=== PATIENT | female | born 1960 | race Caucasian/White ===

== ENCOUNTER → 2016-09-26 | Outpatient (CLI) | payer BC ==
[2016-09-26 13:19] LABS: HEMATOCRIT 39.7 % (37-47); MEAN CELL VOLUME 82.2 fL (80-100); MEAN CORPUSCULAR HEMOGLOBIN 27.7 pg (25-34); MEAN CORPUSCULAR HGB CONC 33.8 g/dl (32-36); MEAN PLATELET VOLUME 10.9 fL (7.4-10.4); PLATELET COUNT 240 K/uL (130-400); RED BLOOD COUNT 4.83 M/uL (4.2-5.4); WHITE BLOOD COUNT 4.68 K/uL (4.8-10.8)
[2016-09-26 13:48] LABS: BASO % 0.6 %; BASO ABS # 0.03 K/uL (0-0.2); COMPLETE YES; EOS % 1.1 %; IG% 0.4 %; LYMPH % 52.4 %; LYMPH ABS # 2.45 K/uL (1.2-3.4); MONO % 7.9 %; NEUT % 37.6 %
[2016-09-26 13:51] LABS: ESTIMATED AVERAGE GLUCOSE 128 mg/dl; HA1C FLAG Normal (Normal)
[2016-09-26 14:26] LABS: AST/SGOT 26 U/L (15-37); BLOOD UREA NITROGEN 10 mg/dl (7-18); CALCIUM 9.5 mg/dl (8.5-10.1); CARBON DIOXIDE 23 mmol/L (21-32); CHLORIDE 108 mmol/L (98-107); CHOLESTEROL 228 mg/dl (0-200); CREATININE 0.77 mg/dl (0.60-1.20); GLUCOSE 103 mg/dl (70-99); HDL CHOLESTEROL 57 mg/dl; LDL CHOLESTEROL CALCULATED 136 mg/dl; PHOSPHORUS 3.1 mg/dl (2.5-4.9); POTASSIUM 4.1 mmol/L (3.5-5.1); SODIUM 141 mmol/L (136-145); TRIGLYCERIDES 174 mg/dl (0-150); VERY LOW DENSITY LIPOPROT CALC 35 mg/dl
[2016-09-26 14:38] LABS: ALT/SGPT 60 U/L (12-78)
== END | disposition home or self-care (01) ==
LOC: C.LABMFLN 09:08
PROVIDERS: ATTEND Family Medicine
DX: E78.5 Hyperlipidemia, unspecified (principal); D51.9 Vitamin B12 deficiency anemia, unspecified; Z13.1 Encounter for screening for diabetes mellitus

== ENCOUNTER → 2017-09-29 | Outpatient (CLI) | payer BC | END | disposition home or self-care (01) | LOC: C.LABMFLN 08:37 | PROVIDERS: ATTEND Family Medicine | DX: Z13.1 Encounter for screening for diabetes mellitus (principal); Z13.220 Encounter for screening for lipoid disorders ==

== ENCOUNTER → 2018-04-14 | Outpatient (CLI) | payer BC ==
[2018-04-14 17:38] LABS: BASO % 0.6 %; BASO ABS # 0.05 K/uL (0-0.2); EOS % 0.6 %; EOS ABS # 0.05 K/uL (0-0.5); HEMATOCRIT 39.7 % (37-47); HEMOGLOBIN 13.3 g/dL (12.0-16.0); IG# 0.02 K/uL (0.00-0.02); LYMPH % 43.3 %; LYMPH ABS # 3.38 K/uL (1.2-3.4); MEAN CELL VOLUME 84.6 fL (80-100); MEAN CORPUSCULAR HEMOGLOBIN 28.4 pg (25-34); MEAN CORPUSCULAR HGB CONC 33.5 g/dl (32-36); MEAN PLATELET VOLUME 11.3 fL (7.4-10.4); MONO ABS # 0.78 K/uL (0.11-0.59); NEUT % 45.2 %; NEUT ABS # 3.52 K/uL (1.4-6.5); PLATELET COUNT 245 K/uL (130-400); RED CELL DISTRIBUTION WIDTH CV 13.3 % (11.5-14.5); RED CELL DISTRIBUTION WIDTH SD 40.8 fL (36.4-46.3)
[2018-04-14 18:08] LABS: ALBUMIN 3.8 gm/dl (3.4-5.0); ALKALINE PHOSPHATASE 51 U/L (45-117); ALT/SGPT 56 U/L (12-78); AST/SGOT 30 U/L (15-37); BLOOD UREA NITROGEN 12 mg/dl (7-18); CARBON DIOXIDE 25 mmol/L (21-32); CREATININE 0.81 mg/dl (0.60-1.20); GLUCOSE 100 mg/dl (70-99); SODIUM 136 mmol/L (136-145); TOTAL PROTEIN 8.1 gm/dl (6.4-8.2)
== END | disposition home or self-care (01) ==
LOC: C.LABMFLN 15:59
PROVIDERS: ATTEND Family Medicine
DX: R10.12 Left upper quadrant pain (principal)

== ENCOUNTER 2020-05-17 19:16 | Observation (INO) ==
--- NOTE | 2020-05-17 19:47 | Emergency Department Note ---
History of Present Illness General Chief complaint: Abdominal Pain Stated complaint: ABD PAIN LEFT SIDE Time Seen by Provider: 05/17/20 19:28 Source: patient Mode of arrival: ambulatory Limitations: no limitations History of Present Illness Provider complaint: Right upper quadrant abdominal pain Onset (ago): week(s) 2 Location: abdomen Radiation: abdomen and flank Severity: moderate and similar to prior episodes Pain Consistency: + intermittent Maximum Pain Intensity: 6 Current Pain Intensity: 6 Quality: + sharp Relieved By: + none Exacerbated By: + none Associated symptoms: + loss of appetite; no fever/chills and no shortness of breath Treatments prior to arrival: none This is a 59-year-old female who presents to the emergency department due to recurrent right upper quadrant pain. Patient states this is the third episode she has had of this in the last 3 weeks. Patient had been to see her family doctor earlier in the week and underwent an outpatient right upper quadrant ultrasound which showed stones and sludge in her gallbladder. Patient states she was referred to Dr. Medrano of general surgery, but is unable to see him until Thursday. Patient states she ate grilled chicken for lunch around 1 PM. She states around 4 PM the symptoms started again and seemed much worse. She called the family doctor's office and was told to come to the emergency room. Patient denies any change in bowel or bladder function. Denies fevers or chills, denies nausea or vomiting. Patient states she did have nausea and vomiting with the prior episodes. Patient states her mother also needed her gallbladder taken out. No recent change in diet. No known exposure to coronavirus. Pt seen during a time of high acuity and national emergency pandemic while wearing PPE. Home Medications Home Medications Medication Instructions Recorded Confirmed Type cyanocobalamin (vitamin B-12) 1,000 mcg PO DAILY #30 cap 09/26/19 05/17/20 Rx 1,000 mcg capsule multivitamin 1 tab PO DAILY #30 tab 09/26/19 05/17/20 Rx loratadine-pseudoephedrine ER 10 1 tab PO DAILY PRN #90 tab 04/12/20 05/17/20 Rx mg-240 mg tablet,extended [id number] ciprofloxacin HCl 500 mg PO BID #10 tab 05/19/20 Rx hydrocodone-acetaminophen [[place]] 1 - 2 tab PO .q4-6h PRN #15 tab 09/19/20 Rx metronidazole 500 mg PO TID #15 tab 05/19/20 Rx Allergies Allergy/AdvReac Type Severity Reaction Status Date / Time No Known Allergies Allergy Verified 05/17/20 20:27 Past Med/Surg History Medical History Endometriosis Hyperlipidemia Liver lesion Obesity (BMI 30-39.9) Prediabetes RUQ abdominal pain Symptomatic cholelithiasis Vitamin B12 deficiency anemia, unspecified Surgical History History of carpal tunnel release History of colonoscopy History of hysterectomy RAY, BSO History of oral surgery Family History Aunt Breast cancer Father Heart disease Hypertension Hypercholesterolemia Stroke Mother Hypercholesterolemia Social History Smoking Status: Never smoker Hx Alcohol Use: No Hx Substance Use: No Preferred Language: [place] Communication Ability: Effective Account [employer] Required: No Beliefs That Will Affect Care: None Current Living Situation: Spouse Feels Safe at Home: Yes Review of Systems See HPI for pertinent positives & negatives. and A total of 10 systems reviewed and were otherwise negative Physical Exam Vital Signs Vital Signs - 24 hr 05/17/20 19:23 05/17/20 20:58 05/17/20 22:50 Temperature Source Oral Pulse Rate 108 H Pulse Rate [Apical] 90 85 Pulse Strength Normal Respiratory Rate 18 18 16 Respiratory Effort / Characteristics Non-Labored Spontaneous Respiratory Depth Normal Respiratory Pattern Regular Blood Pressure 170/84 H Blood Pressure [Left Arm] 167/93 H 160/74 H Blood Pressure Mean 112 Blood Pressure Mean [Left Arm] 117 102 Blood Pressure Position Sitting Pulse Oximetry 98 96 97 Oxygen Delivery Method Room Air Room Air Room Air Sepsis Recent Fever Within 48 Hours No Sepsis New/Unexplained Change in Mental Status No Sepsis Action Taken by Nursing No Action Required GENERAL: alert, well appearing, well nourished, no distress, non-toxic EYE EXAM: normal conjunctiva, PERRL and EOM's grossly intact OROPHARYNX: no exudate, no erythema, lips, buccal mucosa, and tongue normal and mucous membranes are moist NECK: supple, no nuchal rigidity, no adenopathy, non-tender LUNGS: Clear to auscultation. Normal chest wall mechanics, no w/r/r HEART: no murmurs, S1 normal and S2 normal ABDOMEN: abdomen soft, RUQ tenderness with palpation, normo-active bowel sounds, no masses, no rebound or guarding. BACK: Back is symmetrical on inspection and there is no deformity, no midline tenderness, no CVA tenderness. SKIN: no rashes and no bruising UPPER EXTREMITIES: upper extremities are grossly normal. FROM, nml pulses b/l. LOWER EXTREMITIES: No pitting edema. FROM, nml pulses b/l. NEURO EXAM: Normal sensorium, cranial nerves II-XII grossly intact, normal speech, no gross weakness of arms, no gross weakness of legs. Gross sensation intact. Course Course 2239: Discussed with Dr. Bellamy. Feels pt should have additional medicine evaluation including MRCP and they will see the patient in consult. 2251: Pt updated on results. 2304: Case discussed with Dr. Donovan. Administered Medications Discontinued Medications Bupivacaine HCl (Bupivacaine 0.5 % 5 Mg/1 Ml Mpf 30ml Vial) Confirm Administered Dose 30 ml .ROUTE .STK-MED ONE Stop: 05/18/20 17:41 Last Admin: 05/18/20 18:55 Dose: 12 ml Documented by: [id number] Epinephrine HCl (Epinephrine Inj 1 Mg/Ml Amp) Confirm Administered Dose 1 mg .ROUTE .STK-MED ONE Stop: 05/18/20 17:41 Last Admin: 05/18/20 18:54 Dose: 1 mg Documented by: [id number] Ceftriaxone Sodium 2,000 mg/ (Dextrose) 70 mls @ 100 mls/hr IV Q24H ALTA; Protocol Stop: 05/28/20 01:59 Last Infusion: 05/18/20 02:30 Dose: 0 mls/hr Documented by: [id number] Admin: 05/18/20 01:44 Dose: 100 mls/hr Documented by: [id number] Potassium Chloride/Sodium Chloride (Normal Saline W/20 Meq Kcl) 20 meq in 1,000 mls @ 100 mls/hr IV .Q10H ALTA Stop: 06/17/20 01:29 Last Infusion: 05/18/20 17:00 Dose: 0 mls/hr Documented by: [id number] Admin: 05/18/20 11:31 Dose: 100 mls/hr Documented by: [id number] Infusion: 05/18/20 11:31 Dose: 100 mls/hr Documented by: [id number] Admin: 05/18/20 01:44 Dose: 100 mls/hr Documented by: [id number] Famotidine 20 mg/ Syringe 5 mls @ 2.5 mls/min IV Q12H ALTA Stop: 06/17/20 08:59 Last Admin: 05/19/20 08:51 Dose: 2.5 mls/min Documented by: [id number] Admin: 05/18/20 21:46 Dose: 2.5 mls/min Documented by: [id number] Admin: 05/18/20 09:00 Dose: 2.5 mls/min Documented by: [id number] Cefepime HCl 1,000 mg/ Syringe 11.3 mls @ 5.5 mls/min IV Q12H ALTA Stop: 05/28/20 07:59 Last Admin: 05/18/20 09:00 Dose: 5.5 mls/min Documented by: [id number] Metronidazole (Flagyl) 500 mg in 100 mls @ 100 mls/hr IV Q8H ALTA Stop: 05/28/20 07:59 Last Infusion: 05/19/20 10:15 Dose: 0 mls/hr Documented by: [id number] Admin: 05/19/20 08:51 Dose: 100 mls/hr Documented by: [id number] Infusion: 05/19/20 00:30 Dose: 0 mls/hr Documented by: [id number] Admin: 05/18/20 23:27 Dose: 100 mls/hr Documented by: [id number] Infusion: 05/18/20 17:39 Dose: 0 mls/hr Documented by: [id number] Admin: 05/18/20 16:39 Dose: 100 mls/hr Documented by: [id number] Infusion: 05/18/20 10:00 Dose: 0 mls/hr Documented by: [id number] Admin: 05/18/20 09:00 Dose: 100 mls/hr Documented by: [id number] Cefepime HCl 2,000 mg/ Syringe 20 mls @ 5 mls/min IV Q8H ALTA Stop: 05/28/20 16:59 Last Admin: 05/19/20 08:51 Dose: 5 mls/min Documented by: [id number] Admin: 05/19/20 02:12 Dose: 5 mls/min Documented by: [id number] Admin: 05/18/20 16:47 Dose: 5 mls/min Documented by: [id number] Acetaminophen (Ofirmev) 1,000 mg in 100 mls @ 400 mls/hr IV Q8H ALTA Stop: 05/21/20 20:10 Last Infusion: 05/19/20 06:15 Dose: 0 mls/hr Documented by: [id number] Admin: 05/19/20 05:55 Dose: 400 mls/hr Documented by: [id number] Infusion: 05/18/20 22:05 Dose: 0 mls/hr Documented by: [id number] Admin: 05/18/20 21:45 Dose: 400 mls/hr Documented by: [id number] Sodium Chloride (Nss 1000ml) 1,000 mls @ 75 mls/hr IV .[id number] ALTA Stop: 06/17/20 20:10 Last Admin: 05/19/20 11:44 Dose: Not Given Documented by: [id number] Infusion: 05/19/20 06:15 Dose: 75 mls/hr Documented by: [id number] Infusion: 05/19/20 05:55 Dose: 0 mls/hr Documented by: [id number] Infusion: 05/19/20 05:45 Dose: 75 mls/hr Documented by: [id number] Infusion: 05/19/20 00:30 Dose: 75 mls/hr Documented by: [id number] Infusion: 05/18/20 23:27 Dose: 0 mls/hr Documented by: [id number] Admin: 05/18/20 22:05 Dose: 75 mls/hr Documented by: [id number] Oxycodone HCl (Oxycodone Hcl Ir 5 Mg Tab (Immediate Release)) 5 mg PO Q6H ALTA Stop: 06/01/20 21:59 Last Admin: 05/19/20 09:26 Dose: 5 mg Documented by: [id number] Admin: 05/19/20 04:21 Dose: 5 mg Documented by: [id number] Admin: 05/18/20 22:05 Dose: 5 mg Documented by: [id number] Medical Decision Making Differential Diagnosis Differential diagnoses includes but is not limited to gastritis, peptic ulcer disease, GERD, gallbladder disease, pancreatitis, small bowel obstruction, acute coronary syndrome, pericarditis, ischemic bowel, irritable bowel disease, irritable bowel syndrome, appendicitis, diverticulitis, malignancy, hernia, urinary tract infection, torsion, [/ectopic (if female)], perforation, trauma, infectious. Medical Records Attestation: I reviewed the patient's medical records. Home Medications Current Medication List: was personally reviewed by me Laboratory Data Attestation: I reviewed the patient's lab results. Result diagrams: 05/19/20 05:44 05/19/20 05:44 Lab Results 05/17/20 05/17/20 05/17/20 Range/Units 19:46 19:46 19:46 WBC 7.50 (4.8-10.8) K/uL RBC 4.90 (4.2-5.4) M/uL Hgb 14.0 (12.0-16.0) g/dL Hct 40.6 (37-47) % MCV 82.9 (80-100) fL MCH 28.6 (25-34) pg MCHC 34.5 (32-36) g/dL RDW Std Deviation 38.9 (36.4-46.3) fL RDW Coeff of Aayush 12.9 (11.5-14.5) % Plt Count 260 (130-400) K/uL MPV 10.5 H (7.4-10.4) fL Immature Gran % (Auto) 0.3 % Neut % (Auto) 51.6 % Lymph % (Auto) 39.1 % Emery % (Auto) 8.3 % Eos % (Auto) 0.3 % Baso % (Auto) 0.4 % Neut # (Auto) 3.88 (1.4-6.5) K/uL Lymph # (Auto) 2.93 (1.2-3.4) K/uL Emery # (Auto) 0.62 H (0.11-0.59) K/uL Eos # (Auto) 0.02 (0-0.5) K/uL Baso # (Auto) 0.03 (0-0.2) K/uL Immature Gran # (Auto) 0.02 (0.00-0.02) K/uL PT 11.2 (9.0-12.0) Seconds INR 1.1 (0.9-1.1) Sodium 139 (136-145) mmol/L Potassium 3.7 (3.5-5.1) mmol/L Chloride 107 (98-107) mmol/L Carbon Dioxide 23 (21-32) mmol/L Anion Gap 9.0 (3-11) BUN 15 (7-18) mg/dl Creatinine 0.81 (0.6-1.2) mg/dl Est Cr Clr Drug Dosing Not Reportable Est GFR ( Amer) 92.1 Est GFR (Non-Af Amer) 79.5 BUN/Creatinine Ratio 19.0 (10-20) Glucose 103 H (70-99) mg/dl Calcium 9.3 (8.5-10.1) mg/dl Total Bilirubin 1.5 H (0.2-1) mg/dl AST 154 H (15-37) U/L ALT 118 H (12-78) U/L Alkaline Phosphatase 64 (45-117) U/L Troponin I < 0.015 (0-0.045) ng/ml Total Protein 8.3 H (6.4-8.2) gm/dl Albumin 4.3 (3.4-5.0) gm/dl Globulin 4.0 (2.5-4.0) gm/dl Albumin/Globulin Ratio 1.1 (0.9-2) Lipase 115 (73-393) U/L Urine Color Urine Appearance (Clear) Urine pH (4.5-7.5) Ur Specific [place] (1.000-1.030) Urine Protein (Negative) Urine Glucose (UA) (Negative) Urine Ketones (Negative) Urine Blood (Negative) Urine Nitrite (Negative) Urine Bilirubin (Negative) Urine Urobilinogen (Negative) Ur Leukocyte Esterase (Negative) Urine WBC (Auto) (0-5) /hpf Urine RBC (Auto) (0-4) /hpf U Hyaline Cast (Auto) (0-5) /lpf U Epithel Cells (Auto) (0-5) /lpf Urine Bacteria (Auto) (Negative) 05/17/20 Range/Units 19:50 WBC (4.8-10.8) K/uL RBC (4.2-5.4) M/uL Hgb (12.0-16.0) g/dL Hct (37-47) % MCV (80-100) fL MCH (25-34) pg MCHC (32-36) g/dL RDW Std Deviation (36.4-46.3) fL RDW Coeff of Aayush (11.5-14.5) % Plt Count (130-400) K/uL MPV (7.4-10.4) fL Immature Gran % (Auto) % Neut % (Auto) % Lymph % (Auto) % Emery % (Auto) % Eos % (Auto) % Baso % (Auto) % Neut # (Auto) (1.4-6.5) K/uL Lymph # (Auto) (1.2-3.4) K/uL Emery # (Auto) (0.11-0.59) K/uL Eos # (Auto) (0-0.5) K/uL Baso # (Auto) (0-0.2) K/uL Immature Gran # (Auto) (0.00-0.02) K/uL PT (9.0-12.0) Seconds INR (0.9-1.1) Sodium (136-145) mmol/L Potassium (3.5-5.1) mmol/L Chloride (98-107) mmol/L Carbon Dioxide (21-32) mmol/L Anion Gap (3-11) BUN (7-18) mg/dl Creatinine (0.6-1.2) mg/dl Est Cr Clr Drug Dosing Est GFR ( Amer) Est GFR (Non-Af Amer) BUN/Creatinine Ratio (10-20) Glucose (70-99) mg/dl Calcium (8.5-10.1) mg/dl Total Bilirubin (0.2-1) mg/dl AST (15-37) U/L ALT (12-78) U/L Alkaline Phosphatase (45-117) U/L Troponin I (0-0.045) ng/ml Total Protein (6.4-8.2) gm/dl Albumin (3.4-5.0) gm/dl Globulin (2.5-4.0) gm/dl Albumin/Globulin Ratio (0.9-2) Lipase (73-393) U/L Urine Color Yellow Urine Appearance Clear (Clear) Urine pH 5.5 (4.5-7.5) Ur Specific [place] 1.006 (1.000-1.030) Urine Protein Negative (Negative) Urine Glucose (UA) Negative (Negative) Urine Ketones Trace H (Negative) Urine Blood 1+ H (Negative) Urine Nitrite Negative (Negative) Urine Bilirubin Negative (Negative) Urine Urobilinogen Negative (Negative) Ur Leukocyte Esterase 1+ H (Negative) Urine WBC (Auto) 1-5 (0-5) /hpf Urine RBC (Auto) 0-4 (0-4) /hpf U Hyaline Cast (Auto) 0 (0-5) /lpf U Epithel Cells (Auto) 10-20 H (0-5) /lpf Urine Bacteria (Auto) Negative (Negative) Imaging Data Radiologist's Impression: Ultrasound gallbladder: Pancreas is predominantly obscured. Echogenic liver suggesting fatty infiltration or hepatocellular disease. 1.8 x 1.3 x 2.0 cm lesion in the liver. Cholelithiasis and gallbladder sludge. Wall is upper limits of normal at 3 mm. Negative sonographic Kwon sign. No biliary ductal dilatation. Radiologist: Librado Gilmore MD Blood Pressure Blood Pressure Findings: Elevated blood pressure Blood Pressure Disposition: further management by hospitalist MDM Narrative Pt here with recurrent abdominal pain that she has seen her PCP for and referred to gen surgery. Pt had outpt US with sludge/stones. GIven recurrent severe pain again tonight we started with labs. Pt now with newly elevated LFT"s. In light of this, repeat US ordered. Pt afebrile and no leukocytosis. Pt discussed with Dr. Bellamy who suggested additional testing be performed by medicine and they will see in consult. Case discussed with the hospitalist. Pt kept aware of all results and was in agreement with the plan. Pt's UA suboptimal but did show hematuria. Culture sent. Pt denies any symptoms. An order was placed for continuous cardiac monitoring. The monitor shows a rate of _90_ with _normal sinus_ rhythm. Impression & Plan RUQ abdominal pain, Abnormal LFTs, Cholelithiasis Discharge Plan Visit Data Chief Complaint: Abdominal Pain Stated Complaint: ABD PAIN LEFT SIDE ED Provider: Arely Watson Discharge Problem: RUQ abdominal pain, Abnormal LFTs, Cholelithiasis Patient Disposition: Admitted As Inpatient Discharge Instructions Interventions: ED Discharge Assessment Last Done: 05/18/20 00:48 Discharge Problem: Cholelithiasis Qualifiers: Cholelithiasis location: gallbladder Cholecystitis presence: without cholecystitis Biliary obstruction: without biliary obstruction Qualified Code(s): K80.20 - Calculus of gallbladder without cholecystitis without obstruction
[2020-05-17 19:59] LABS: Basophils # (auto) 0.03 K/uL (0-0.2); Basophils % (auto) 0.4 %; Eosinophils # (auto) 0.02 K/uL (0-0.5); Eosinophils % (auto) 0.3 %; Hematocrit (blood only) 40.6 % (37-47); Immature Granulocytes # (auto) 0.02 K/uL (0.00-0.02); Immature Granulocytes % (auto) 0.3 %; Lymphocytes # (auto) 2.93 K/uL (1.2-3.4); Lymphocytes % (auto) 39.1 %; Mean Corpuscular Hemoglobin 28.6 pg (25-34); Mean Corpuscular Hgb Conc 34.5 g/dL (32-36); Mean Corpuscular Volume 82.9 fL (80-100); Mean Platelet Volume 10.5 fL (7.4-10.4); Monocytes # (auto) 0.62 K/uL (0.11-0.59); Monocytes % (auto) 8.3 %; Neutrophils # (auto) 3.88 K/uL (1.4-6.5); Neutrophils % (auto) 51.6 %; Platelet Count 260 K/uL (130-400); RDW Coefficient of Variation 12.9 % (11.5-14.5); RDW Standard Deviation 38.9 fL (36.4-46.3)
[2020-05-17 20:07] LABS: INR 1.1 (0.9-1.1); Prothrombin Time 11.2 Seconds (9.0-12.0)
[2020-05-17 20:08] LABS: Appearance Urine Clear (Clear); Bacteria Urine Automated Negative (Negative); Bilirubin Urine Negative (Negative); Blood Urine 1+ (Negative); Cast Urine Automated 0 /lpf (0-5); Color Urine Yellow; Glucose Urine UA Negative (Negative); Ketones Urine Trace (Negative); Leukocyte Esterase Urine 1+ (Negative); Nitrite Urine Negative (Negative); Protein Urine Negative (Negative); RBC Urine Automated 0-4 /hpf (0-4); Specific Gravity Urine 1.006 (1.000-1.030); Urobilinogen Urine Negative (Negative); pH Urine 5.5 (4.5-7.5)
[2020-05-17 20:48] LABS: Alanine Aminotransferase 118 U/L (12-78); Albumin Level 4.3 gm/dl (3.4-5.0); Aspartate Aminotransferase 154 U/L (15-37); Blood Urea Nitrogen 15 mg/dl (7-18); Calcium 9.3 mg/dl (8.5-10.1); Carbon Dioxide 23 mmol/L (21-32); Chloride 107 mmol/L (98-107); Est GFR (African American) 92.1; Est GFR (Non-African American) 79.5; Glucose 103 mg/dl (70-99); Lipase 115 U/L (73-393); Potassium 3.7 mmol/L (3.5-5.1); Sodium 139 mmol/L (136-145)
[2020-05-17 20:52] LABS: Albumin Globulin Ratio 1.1 (0.9-2); Alkaline Phosphatase 64 U/L (45-117); Bilirubin,Total 1.5 mg/dl (0.2-1); Total Protein 8.3 gm/dl (6.4-8.2); Troponin I < 0.015 ng/ml (0-0.045)
--- NOTE | 2020-05-18 | History & Physical Report ---
Date of Service May 18, 2020 The patient was seen and examined on 05/17/2020 Assessment & Plan (1) Abnormal LFTs: Abnormal LFTs/cholelithiasis with gallbladder sludge- Neither ultrasound or MRI confirms cholecystitis. Symptoms are suggestive of biliary colic x3 over the past 2 weeks. We will order HIDA scan with gallbladder EF. NPO Ceftriaxone 1 g IV daily Morphine sulfate 2 mg IV every 4 hours as needed severe pain Zofran 4 mg IV every 6 hours as needed Famotidine 20 mg IV every 12 hours NSS + KCl 20 mEq at 100 mils per hour. General surgery was contacted by the ED and is aware the patient. Present on Admission?: Yes (2) Cholelithiasis: See above Present on Admission?: Yes (3) Hemangioma of liver: Initial liver lesion noted on gallbladder ultrasound, is confirmed as a probable hemangioma on MRI Present on Admission?: Yes History of Present Illness Chief Complaint: The patient presents to the emergency department with her third episode of right upper quadrant abdominal pain over the past 2 weeks. Primary Care Provider: Kathie Cruz MD The patient is a 59-year-old female with a past medical history including vitamin B12 deficiency, prediabetes, obesity, hyperlipidemia and allergic rhinitis. She presents as noted above. She did have a outpatient ultrasound performed by her PCP, which showed stones and sludge in her gallbladder. She has a pending appointment with Dr. Medrano from general surgery. She developed severe right upper quadrant pain today about 3 hours after eating grilled chicke n for lunch, and was referred to the ED by her PCP. She has not had any recent travels or sick exposures. Allergies Allergy/AdvReac Type Severity Reaction Status Date / Time No Known Allergies Allergy Verified 05/17/20 20:27 Home Medications Home Medications Medication Instructions Recorded Confirmed Type cyanocobalamin (vitamin B-12) 1,000 mcg PO DAILY #30 cap 09/26/19 05/17/20 Rx 1,000 mcg capsule multivitamin 1 tab PO DAILY #30 tab 09/26/19 05/17/20 Rx loratadine-pseudoephedrine ER 10 1 tab PO DAILY PRN #90 tab 04/12/20 05/17/20 Rx mg-240 mg tablet,extended [id number] Past Med/Surg History Medical History Endometriosis Hyperlipidemia Liver lesion Obesity (BMI 30-39.9) Prediabetes RUQ abdominal pain Symptomatic cholelithiasis Vitamin B12 deficiency anemia, unspecified Surgical History History of carpal tunnel release History of colonoscopy History of hysterectomy RAY, BSO History of oral surgery Family History Aunt Breast cancer Father Heart disease Hypertension Hypercholesterolemia Stroke Mother Hypercholesterolemia Social History Smoking Status: Never smoker Do You Dip or Chew Tobacco: No; Hx Alcohol Use: No Hx Substance Use: No Preferred Language: Romanian Communication Ability: Effective Child Specialist Required: No Beliefs That Will Affect Care: None Current Living Situation: Spouse Feels Safe at Home: Yes Review of Systems Review of Systems: The patient denies chest pain, palpitations, shortness of breath, dyspnea on exertion, cough, lower extremity swelling, sore throat, fevers, chills, sweats, vomiting, diarrhea , constipation, pelvic pain, blood in urine or stool, dysuria, urinary frequency or urgency, lightheadedness, dizziness, headache, memory loss, loss of consciousness, rash, abnormal bruising or bleeding, imbalance, focal or generalized weakness, numbness or tingling in arms or legs, generalized arthralgias or myalgias, back or neck pain, or night sweats. The review of systems is otherwise negative other than for that already noted above, and at least 10 systems have been reviewed. Physical Exam Physical Exam: The patient is awake, alert and oriented 3, well developed and well nourished, normocephalic and atraumatic, lying in bed and in no acute distress. HEENT--PERRL, EOMI, mucous membranes and oropharynx dry. Neck--supple. No JVD. No bruits. Thyroid normal, trachea midline, no adenopathy. Heart--normal S1 and S2. No murmurs, rubs or gallops. Lungs--clear bilaterally, no respiratory distress, no accessory muscle use. Abdomen--normal bowel sounds and soft. Tender epigastrium and right upper quadrant. Nondistended. Extremities--no cyanosis or clubbing. No edema. Dermatologic--normal skin turgor, normal color, no abnormal lymph nodes, no rash. Neurologic--cranial nerves II through XII grossly intact. Rheumatologic--normal range of motion. Psychiatric--normal affect. Results & Data Results & Data ([facility]) Vital Signs (Past 12 Hours) Vital Signs Pulse Pulse Resp BP BP Pulse Ox 05/17/20 22:50 85 16 160/74 H 97 05/17/20 20:58 90 18 167/93 H 96 05/17/20 19:23 108 H 18 170/84 H 98 Laboratory Results Laboratory Results WBC 7.50 K/uL (4.8-10.8) 05/17/20 19:46 RBC 4.90 M/uL (4.2-5.4) 05/17/20 19:46 Hgb 14.0 g/dL (12.0-16.0) 05/17/20 19:46 Hct 40.6 % (37-47) 05/17/20 19:46 MCV 82.9 fL (80-100) 05/17/20 19:46 MCH 28.6 pg (25-34) 05/17/20 19:46 MCHC 34.5 g/dL (32-36) 05/17/20 19:46 RDW Std Deviation 38.9 fL (36.4-46.3) 05/17/20 19:46 RDW Coeff of Aayush 12.9 % (11.5-14.5) 05/17/20 19:46 Plt Count 260 K/uL (130-400) 05/17/20 19:46 MPV 10.5 fL (7.4-10.4) H 05/17/20 19:46 Immature Gran % (Auto) 0.3 % 05/17/20 19:46 Neut % (Auto) 51.6 % 05/17/20 19:46 Lymph % (Auto) 39.1 % 05/17/20 19:46 D[place]y % (Auto) 8.3 % 05/17/20 19:46 Eos % (Auto) 0.3 % 05/17/20 19:46 Baso % (Auto) 0.4 % 05/17/20 19:46 Neut # (Auto) 3.88 K/uL (1.4-6.5) 05/17/20 19:46 Lymph # (Auto) 2.93 K/uL (1.2-3.4) 05/17/20 19:46 Dooly # (Auto) 0.62 K/uL (0.11-0.59) H 05/17/20 19:46 Eos # (Auto) 0.02 K/uL (0-0.5) 05/17/20 19:46 Baso # (Auto) 0.03 K/uL (0-0.2) 05/17/20 19:46 Immature Gran # (Auto) 0.02 K/uL (0.00-0.02) 05/17/20 19:46 PT 11.2 Seconds (9.0-12.0) 05/17/20 19:46 INR 1.1 (0.9-1.1) 05/17/20 19:46 Sodium 139 mmol/L (136-145) 05/17/20 19:46 Potassium 3.7 mmol/L (3.5-5.1) 05/17/20 19:46 Chloride 107 mmol/L (98-107) 05/17/20 19:46 Carbon Dioxide 23 mmol/L (21-32) 05/17/20 19:46 Anion Gap 9.0 (3-11) 05/17/20 19:46 BUN 15 mg/dl (7-18) 05/17/20 19:46 Creatinine 0.81 mg/dl (0.6-1.2) 05/17/20 19:46 Est Cr Clr Drug Dosing Not Reportable 05/17/20 19:46 Est GFR ( Amer) 92.1 05/17/20 19:46 Est GFR (Non-Af Amer) 79.5 05/17/20 19:46 BUN/Creatinine Ratio 19.0 (10-20) 05/17/20 19:46 Glucose 103 mg/dl (70-99) H 05/17/20 19:46 Calcium 9.3 mg/dl (8.5-10.1) 05/17/20 19:46 Total Bilirubin 1.5 mg/dl (0.2-1) H 05/17/20 19:46 AST 154 U/L (15-37) H 05/17/20 19:46 ALT 118 U/L (12-78) H 05/17/20 19:46 Alkaline Phosphatase 64 U/L (45-117) 05/17/20 19:46 Troponin I < 0.015 ng/ml (0-0.045) 05/17/20 19:46 Total Protein 8.3 gm/dl (6.4-8.2) H 05/17/20 19:46 Albumin 4.3 gm/dl (3.4-5.0) 05/17/20 19:46 Globulin 4.0 gm/dl (2.5-4.0) 05/17/20 19:46 Albumin/Globulin Ratio 1.1 (0.9-2) 05/17/20 19:46 Lipase 115 U/L (73-393) 05/17/20 19:46 Urine Color Yellow 05/17/20 19:50 Urine Appearance Clear (Clear) 05/17/20 19:50 Urine pH 5.5 (4.5-7.5) 05/17/20 19:50 Ur Specific [place] 1.006 (1.000-1.030) 05/17/20 19:50 Urine Protein Negative (Negative) 05/17/20 19:50 Urine Glucose (UA) Negative (Negative) 05/17/20 19:50 Urine Ketones Trace (Negative) H 05/17/20 19:50 Urine Blood 1+ (Negative) H 05/17/20 19:50 Urine Nitrite Negative (Negative) 05/17/20 19:50 Urine Bilirubin Negative (Negative) 05/17/20 19:50 Urine Urobilinogen Negative (Negative) 05/17/20 19:50 Ur Leukocyte Esterase 1+ (Negative) H 05/17/20 19:50 Urine WBC (Auto) 1-5 /hpf (0-5) 05/17/20 19:50 Urine RBC (Auto) 0-4 /hpf (0-4) 05/17/20 19:50 U Hyaline Cast (Auto) 0 /lpf (0-5) 05/17/20 19:50 U Epithel Cells (Auto) 10-20 /lpf (0-5) H 05/17/20 19:50 Urine Bacteria (Auto) Negative (Negative) 05/17/20 19:50 Diagnostic Findings [facility], [place] [phone] Ultrasound Report Patient: Anjana GTZ Date: 05/16/20 MR#: [id number]: [address] [place] [address] Acct ID:[id number]: Date: 1960[facility] Zip: [place] [id number] Age: 59Location: [place] Sex: FRoom/Bed: Att Phy: Kathie Cruz MDDiagnosis: RUQ PAIN Mare Phy: Kathie Cruz MDService Date: 05/16/20 Fam Phy:Interpreting Phy: Tim Fulton MD Admit Phy: Ordering Phy: Kathie Cruz MD cc: ~ ULTRASOUND RIGHT UPPER QUADRANT ABDOMEN CLINICAL HISTORY: Right upper quadrant abdominal pain. COMPARISON STUDY: Abdominal CT dated 04/15/2018. TECHNIQUE: Real-time, grayscale, and color flow sonography of the right upper quadrant of the abdomen was performed. Images are reviewed in the transverse and longitudinal planes. FINDINGS: Liver: The liver is enlarged and demonstrates heterogeneously increased echotexture consistent with moderate to severe hepatic steatosis. Note that this degrades acoustic penetration of the liver. There is no intrahepatic biliary ductal dilatation. The main portal vein is patent. A 2.1 cm hypoechoic nodule is seen in the right lobe. Gallbladder: The gallbladder is filled with stones and sludge. There is no gallbladder wall thickening or pericholecystic fluid. A sonographic Kwon's sign is reportedly absent. The common bile duct measures up to 0.5 cm in diameter. Pancreas: Visualized portions of the pancreatic head and body are normal in appearance. Right kidney: Survey images of the right kidney demonstrate cortical atrophy. Echotexture is normal. There is no hydronephrosis. Ascites: None. IMPRESSION: 1. The gallbladder is filled with stones and sludge. There is no sonographic evidence of acute cholecystitis at the time of examination. 2. Hepatomegaly noting moderate to severe steatosis. 3. There is a 2.1 cm hypoechoic nodule identified in the right lobe of the liver. This is pathologically indeterminant, and was not clearly seen on the 04/15/[address] Consider follow-up with a liver protocol CT or MRI for further assessment. ACT 112: Negative or not required by law. Electronically signed by: Tim Fulton M.D. 05/16/2020 8:53 AM Dictated: 05/16/20849 Transcribed: 05/16/2050 [facility] Patient: DEBBY GTZ (Female) : 60 Status: IP Date: 05/18/20 01:28 Room #: w359-1 History: GALLBLADDER ATTACKS. 1ST ONE WAS 10 DAYS AGO. HAD 3 ATTACKS THURSDAY. 1ST ON THURSDAY NAUSEA AND VOMITING. 2ND AND 3RD ATTACKS JUST PAIN. STILL HAS GALLBLADDER. HAD SEEN PCP AND REFERRED TO SURGEON BUT HAD ANOTHER ATTACK. Slices: 299 Priors: US ABD LIMITED, US GALLBLADDER, CT ABD/PEL Tech: Kali Chavarria @ [phone] Exams: MRCP Contrast: Accession Numbers: [id number] Preliminary Findings Only See Final Report For Complete Findings MRCP : The gallbladder is mildly distended containing several gallstones. No wall thickening or adjacent edema to suggest acute cholecystitis. No biliary dilatation. No choledocholithiasis. Hepatic steatosis. 2 cm ovoid high T2 signal lesion in the right hepatic lobe is stable from previous CT and probably represents a small hemangioma. Radiologist: Kevin Johnson MD Study ready at 01:29 and initial results transmitted at 01:53 Results also transmitted to [facility] ([id number]) @ [phone] (Fax) *This report constitutes a preliminary interpretation only. Non-acute findings felt to be unrelated to the clinical presentation may not be discussed in this report. The study will be interpreted and a final report will be generated by the local Radiologist the following shift. To reach the hospital radiology department call [phone]. If a discrepancy is found between the preliminary and final interpretations of this study, please notify us via our Client Portal at [email or web address].You can also fax this report with a description of the discrepancy, or include the final report, to our daytime fax number [phone].If faxing, please indicate the severity of discrepancy using one of the following categories: [ ] 1 - Agree/Informational [ ] 2 - Unlikely to Affect Management [ ] 3 - Possible Eventual Change of Management [ ] 4 - Probable Immediate Change of Management For all other patient related information, please fax us at [phone]. [id number] [facility] Patient: DEBBY GTZ (Female) : 60 Status: ER Date: 05/17/20 21:41 Room #: History: RUQ pain. Elevated LFT's. Slices: 55 Priors: Tech: Tanja Staley @ [phone] Exams: US GALLBLADDER Contrast: Accession Numbers: [id number] Preliminary Findings Only See Final Report For Complete Findings US GALLBLADDER: Pancreas is predominantly obscured. Echogenic liver suggesting fatty infiltration or hepatocellular disease. 1.8 x 1.3 x 2.0 cm lesion in the liver Cholelithiasis and gallbladder sludge. Wall is a upper limits of normal at 3 mm's. Negative sonographic Kwon sign. No biliary ductal dilatation. Radiologist: Librado Gilmore M.D. Study ready at 22:24 and initial results transmitted at 22:32 *This report constitutes a preliminary interpretation only. Non-acute findings felt to be unrelated to the clinical presentation may not be discussed in this report. The study will be interpreted and a final report will be generated by the local Radiologist the following shift. To reach the hospital radiology department call [phone]. If a discrepancy is found between the preliminary and final interpretations of this study, please notify us via our Client Portal at [email or web address].You can also fax this report with a description of the discrepancy, or include the final report, to our [facility] fax number [phone].If faxing, please indicate the severity of discrepancy using one of the following categories: [ ] 1 - Agree/Informational [ ] 2 - Unlikely to Affect Management [ ] 3 - Possible Eventual Change of Management [ ] 4 - Probable Immediate Change of Management For all other patient related information, please fax us at [phone]. [id number] Code Status & VTE Plan Code Status Full code VTE Prophylaxis Plan VTE Prophylaxis will be ordered: Yes PG Care Time/CCT Total # of Minutes Spent Total Time Spent with Patient: Total time spent is greater than 50% in coordination of care (as documented) at patient's floor/unit and/or counseling patient: Coding Level of Care Code 09872 OBS Care - Level 3 Diagnoses Abnormal LFTs R94.5 Cholelithiasis K80.20 Biliary obstruction: without biliary obstruction Cholecystitis presence: without cholecystitis Cholelithiasis location: gallbladder Hemangioma of liver D18.03 (1) Cholelithiasis Biliary obstruction: without biliary obstruction Cholecystitis presence: without cholecystitis Cholelithiasis location: gallbladder Qualified Code(s): K80.20 - Calculus of gallbladder without cholecystitis without obstruction
[2020-05-18] MEDS ORDERED: ONDANSETRON INJ 2 MG/ML 2 ML VIAL IV PRN ×3 (00:03→17:47)
[2020-05-18] MEDS ORDERED: MoRPHine SULFATE 2 MG/ML CARP IV PRN ×2 (00:03→20:11)
[2020-05-18] MEDS: NSS + 20MEQ KCL 20 MEQ/1,000 ML BAG IV SCH ×2 (01:44→11:31)
[2020-05-18] MEDS ORDERED: cefTRIAXone SODIUM 2,000 MG in DEXTROSE 5% 50 ML IV SCH (02:00)
[2020-05-18 05:45] LABS: Basophils # (auto) 0.02 K/uL (0-0.2); Basophils % (auto) 0.4 %; Eosinophils # (auto) 0.01 K/uL (0-0.5); Eosinophils % (auto) 0.2 %; Hematocrit (blood only) 39.6 % (37-47); Hemoglobin 13.4 g/dL (12.0-16.0); Immature Granulocytes # (auto) 0.02 K/uL (0.00-0.02); Immature Granulocytes % (auto) 0.4 %; Lymphocytes # (auto) 2.24 K/uL (1.2-3.4); Lymphocytes % (auto) 43.2 %; Mean Corpuscular Hemoglobin 28.2 pg (25-34); Mean Corpuscular Hgb Conc 33.8 g/dL (32-36); Mean Corpuscular Volume 83.4 fL (80-100); Mean Platelet Volume 10.9 fL (7.4-10.4); Monocytes # (auto) 0.52 K/uL (0.11-0.59); Neutrophils # (auto) 2.37 K/uL (1.4-6.5); Neutrophils % (auto) 45.8 %; Platelet Count 245 K/uL (130-400); RDW Coefficient of Variation 13.1 % (11.5-14.5); RDW Standard Deviation 39.4 fL (36.4-46.3); Red Blood Count 4.75 M/uL (4.2-5.4); White Blood Count 5.18 K/uL (4.8-10.8)
[2020-05-18 06:12] LABS: Albumin Level 3.7 gm/dl (3.4-5.0); BUN Creatinine Ratio 14.4 (10-20); Calcium 8.7 mg/dl (8.5-10.1); Creatinine Clr Calc Pharmacy 82.6 ml/min; Est GFR (Non-African American) 84.5; Potassium 4.1 mmol/L (3.5-5.1)
[2020-05-18 06:15] LABS: Albumin Globulin Ratio 0.9 (0.9-2); Globulin 3.9 gm/dl (2.5-4.0); Total Protein 7.6 gm/dl (6.4-8.2)
--- NOTE | 2020-05-18 06:41 | Ultrasound Report ---
US gallbladder HISTORY: 59 years-old Female RUQ pain, abn lft's acute right upper quadrant abdominal pain COMPARISON: MRCP of same day, CT abdomen and pelvis 04/15/2018 TECHNIQUE: Multiple real-time sonographic images of the abdominal right upper quadrant were obtained assessing grayscale appearance and color flow FINDINGS: Echogenic appearance of the liver suggestive of hepatic steatosis. No intrahepatic biliary ductal dil ation. There is a echogenic 1.8 x 1.3 x 2.0 cm lesion involving the inferior right hepatic lobe is un changed from 2018. Partially obscured pancreas. Distended stone and sludge filled filled gallbladder. The gallbladder wall measures the upper limits of normal at 3 mm. There is no pericholecystic fluid. Sonographic Kwon sign reported as negative. Normal common bile duct, 4 mm. The imaged right kidney is unremarkable without hydronephrosis. IMPRESSION: 1. Distended stone and sludge filled gallbladder. The gallbladder wall measures within the upper limi ts of normal, however there is no appreciable pericholecystic fluid and the sonographic Kwon sign w as reported as negative. Correlation with nuclear medicine hepatobiliary scan recommended to exclude developing acute cholecystitis. 2. No biliary ductal dilation. 3. Hepatic steatosis. 4. 2.0 cm lesion within the inferior right hepatic lobe is unchanged from 2018 suggestive of benign e tiology. ACT 112: Negative or not required by law. The above report was generated using voice recognition software. It may contain grammatical, syntax o r spelling errors. Electronically signed by: Job Peres M.D. 05/18/2020 6:39 AM
[2020-05-18] MEDS ORDERED: CEFEPIME 1,000 MG in SYRINGE 0 ML IV SCH (08:00)
--- NOTE | 2020-05-18 08:21 | Magnetic Resonance Report ---
MR MRCP CLINICAL HISTORY: abnormal LFT's, liver lesion COMPARISON STUDY: Gallbladder ultrasound dated 05/16/2020, outside CT scan performed March 2018 FINDINGS: A breath-hold MRCP was performed. There is a 16 mm T2 bright lesion within the right hepatic lobe inferiorly. There are multiple gallstones. There is no intrahepatic biliary ductal dilatation. The common bile duct is of normal caliber. There is no pancreatic ductal dilatation. The common bile duct measures 5 mm. There is no splenomegaly. IMPRESSION: 1. Cholelithiasis 2. No ductal dilatation 3. No evidence for common bile duct calculi 4. 16 mm T2 bright lesion within the right hepatic lobe, similar in size to a hypervascular lesion vi sualized on a March [address] scan. This likely represents a hemangioma ACT 112: Negative or not required by law. Electronically signed by: Preet Chavez M.D. 05/18/2020 8:20 AM
[2020-05-18] MEDS: FAMOTIDINE 20 MG in SYRINGE 3 ML IV SCH ×2 (09:00→21:46)
[2020-05-18] MEDS: metroNIDAZOLE 500 MG/100 ML BAG IV SCH ×3 (09:00→23:27)
--- NOTE | 2020-05-18 13:44 | Surgery Consultation ---
Date of Consultation May 18, 2020 Assessment & Plan (1) Symptomatic cholelithiasis: This is a 59y F with a PMH of pre-DM, HLD, and obesity who presents to the [facility] ED on 05/17/20 with complaints of RUQ abdominal pain. Patient was noted to have concern for symptomatic cholelithiasis after what seems to be two gallbladder attacks and was scheduled to see Dr. Medrano in the outpatient setting for consultation. Unfortunately patient had another bout of RUQ pain yesterday evening prompting her to come to the ED for further evaluation. RUQ US and MRCP reveal + cholelithiasis, distended gallbladder, and no evidence of ductal dilation or CBD stones. Labs today reveal WBC 5, Tbili:1, AST: 125, ALT: 141, Alkp: 59. Patient's symptoms seem to correlate with gallbladder etiology. Patient wishes to proceed with surgery for management of biliary colic. We will decide to take her to the OR today for a laparoscopic cholecystectomy. Covid testing has been ordered. as above. symptoms c/w symptomatic gallstones. discussed options. discussed risks of lap ling ( bleeding/infection/bile duct injury or leak, injury to other organs, dvt/pe/mi/cva etc...questions answered. will proceed with lap ling today. History of Present Illness Attending Physician: Carlo Lugo, History of Present Illness This is a 59y F with a PMH of pre-DM, HLD, and obesity who presents to the [facility] ED on 05/17/20 with complaints of RUQ abdominal pain. Patient reports her first episode of pain started 2 weeks ago and was associated with nausea/vomiting. She had a similar attack not long thereafter, and her PCP ordered her a RUQ US revealing gallstones, and she was referred to general surgery for an evaluation. Unfortunately yesterday evening patient reports a 3rd attack of abdominal pain, rating the pain an 8/10. She states the episodes have been lasting about 3 hours at a time. The pain is in the RUQ and radiates around her back. She reported to the ED for ongoing symptoms. In the ED a repeat RUQ US was obtained that showed a distended stone and sludge filled gallbladder and no biliary ductal dilation. An MRCP was obtained thereafter showing + cholelithiasis, no ductal dilatation, along with a liver lesion consistent with a hemangioma. Labs show a normal WBC and Tbili: 1.5, AST: 154, ALT: 141. Patient reports the first two episodes she did have icecream, but yesterday all she ate was oatmeal and chicken breast. She denies fevers/chills, chest pain, shortness of breath, diarrhea, or constipation. Her abdominal surgical history includes a hysterectomy in 2012. Allergies Allergy/AdvReac Type Severity Reaction Status Date / Time No Known Allergies Allergy Verified 05/17/20 20:27 Home Medications Home Medications Medication Instructions Recorded Confirmed Type cyanocobalamin (vitamin B-12) 1,000 mcg PO DAILY #30 cap 09/26/19 05/17/20 Rx 1,000 mcg capsule multivitamin 1 tab PO DAILY #30 tab 09/26/19 05/17/20 Rx loratadine-pseudoephedrine ER 10 1 tab PO DAILY PRN #90 tab 04/12/20 05/17/20 Rx mg-240 mg tablet,extended [id number] Patient History Medical History Endometriosis Hyperlipidemia Liver lesion Obesity (BMI 30-39.9) Prediabetes RUQ abdominal pain Symptomatic cholelithiasis Vitamin B12 deficiency anemia, unspecified Surgical History History of carpal tunnel release History of colonoscopy History of hysterectomy RAY, BSO History of oral surgery Family History Aunt Breast cancer Father Heart disease Hypertension Hypercholesterolemia Stroke Mother Hypercholesterolemia Social History Smoking Status: Never smoker Do You Dip or Chew Tobacco: No; Hx Alcohol Use: No Hx Substance Use: No Preferred Language: Norwegian Communication Ability: Effective Plastic Surgery Nurse Required: No Beliefs That Will Affect Care: None Current Living Situation: Spouse Feels Safe at Home: Yes Review of Systems Constitutional: no fever and no chills Respiratory: no dyspnea Cardiovascular: no chest pain Gastrointestinal: + abdominal pain (RUQ radiating towards back and epigastric region), + bloating, + nausea and + vomiting; no change in bowel habits Physical Exam Physical Exam: awake/alert Constitutional: well developed and well nourished; no acute distress Respiratory: normal respiratory effort Gastrointestinal (Abdomen): Inspection/Auscultation: + abdominal surgical scar (infraumbilical, well healed); abdomen not distended Percussion/Palpation: + abdomen tender (tender to deep palpation of RUQ) and abdomen soft Results & Data ([facility]) Vital Signs (Past 12 Hours) Vital Signs Temp Pulse Resp BP Pulse Ox 05/18/20 07:22 36.6 C 70 16 125/63 93 MR MRCP CLINICAL HISTORY: abnormal LFT's, liver lesion COMPARISON STUDY: Gallbladder ultrasound dated 05/16/2020, outside CT scan performed March 2018 FINDINGS: A breath-hold MRCP was performed. There is a 16 mm T2 bright lesion within the right hepatic lobe inferiorly. There are multiple gallstones. There is no intrahepatic biliary ductal dilatation. The common bile duct is of normal caliber. There is no pancreatic ductal dilatation. The common bile duct measures 5 mm. There is no splenomegaly. IMPRESSION: 1. Cholelithiasis 2. No ductal dilatation 3. No evidence for common bile duct calculi 4. 16 mm T2 bright lesion within the right hepatic lobe, similar in size to a hypervascular lesion visualized on a March [address] scan. This likely represents a hemangioma US gallbladder HISTORY: 59 years-old Female RUQ pain, abn lft's acute right upper quadrant abdominal pain COMPARISON: MRCP of same day, CT abdomen and pelvis 04/15/2018 TECHNIQUE: Multiple real-time sonographic images of the abdominal right upper quadrant were obtained assessing grayscale appearance and color flow FINDINGS: Echogenic appearance of the liver suggestive of hepatic steatosis. No intrahepatic biliary ductal dilation. There is a echogenic 1.8 x 1.3 x 2.0 cm lesion involving the inferior right hepatic lobe is unchanged from 2018. Partially obscured pancreas. Distended stone and sludge filled filled gallbladder. The gallbladder wall measures the upper limits of normal at 3 mm. There is no pericholecystic fluid. Sonographic Kwon sign reported as negative. Normal common bile duct, 4 mm. The imaged right kidney is unremarkable without hydronephrosis. IMPRESSION: 1. Distended stone and sludge filled gallbladder. The gallbladder wall measures within the upper limits of normal, however there is no appreciable pericholecystic fluid and the sonographic Kwon sign was reported as negative. Correlation with nuclear medicine hepatobiliary scan recommended to exclude developing acute cholecystitis. 2. No biliary ductal dilation. 3. Hepatic steatosis. 4. 2.0 cm lesion within the inferior right hepatic lobe is unchanged from 2018 suggestive of benign etiology. ACT 112: Negative or not required by law. The above report was generated using voice recognition software. It may contain grammatical, syntax or spelling errors. Electronically signed by: Job Peres M.D. 05/18/2020 6:39 AM PG Care Time/CCT Total # of Minutes Spent Total Time Spent with Patient: Total time spent is greater than 50% in coordination of care (as documented) at patient's floor/unit and/or counseling patient: Coding Level of Care Code 18931 Inpt Consult Level 4 Diagnoses Symptomatic cholelithiasis K80.20
--- NOTE | 2020-05-18 16:15 | Hospitalist Progress Note ---
Date of Service May 18, 2020 Assessment & Plan (1) Abnormal LFTs: Abnormal LFTs/cholelithiasis with gallbladder sludge- Neither ultrasound or MRI confirms cholecystitis. symptoms consistent with cholecystitis s/p lap ling and lysis of adhesions on 05/18 in the evening with Dr. Medrano no complications check CBC and CMP in the morning continue Cefepime for time being, but no fever, WBC normal diet and pain control per surgery discharge timing per surgery, check with them tomorrow, reasonable to think that she will be appropriate for discharge (2) Symptomatic cholelithiasis: see above s/p lap ling (3) Hemangioma of liver: Initial liver lesion noted on gallbladder ultrasound, is confirmed as a probable hemangioma on MRI Admission and Anticipated Discharge Date Admission Date: May 17, 2020 Subjective patient resting comfortably in bed, waiting to go to the OR for lap ling no chest pain, no dyspnea, no cough, no fever/chills she says her RUQ is better right now actually but she has had two attacks in a few weeks talked wit Dr. Medrano, will take for lap ling this evening reviewed labs, reviewed imaging reviewed OR report, uncomplicated lap ling and lysis of adhesions Review of Systems Review of Systems: All systems reviewed & are unremarkable except as noted in Subjective Physical Exam Constitutional: well developed, comfortable and + overweight; no acute distress Eyes: PERRL, conjunctivae normal, anicteric sclerae ENMT: external ear and nose normal, oropharynx normal Neck: trachea midline, no thyromegaly Respiratory: normal respiratory effort, lungs clear to auscultation Cardiovascular: RRR, no murmur, no edema Gastrointestinal (Abdomen): Inspection/Auscultation: abdomen normal to inspection and normal bowel sounds; abdomen not distended Percussion/Palpation: + abdomen tender (mild RUQ) and abdomen soft; no guarding and abdomen not rigid Musculoskeletal: no cyanosis or clubbing, extremities motor strength 5/5 Skin: no rashes, warm and dry Neurologic: patellar DTR's 2+ bilat, sensation intact and PERRL, EOMI, accommodation nl, no face palsy, no dysarthria Psychiatric: A+Ox3, euthymic affect Lymphatic: no cervical or axillary lymphadenopathy Results & Data Results & Data ([facility]) Vital Signs (Past 12 Hours) Vital Signs Temp Pulse Resp BP Pulse Ox 05/18/20 14:55 36.8 C 70 16 176/75 H 97 05/18/20 07:22 36.6 C 70 16 125/63 93 Laboratory Results Laboratory Results - last 24 hr 05/18/20 05/18/20 05/18/20 05:22 05:22 11:30 WBC 5.18 RBC 4.75 Hgb 13.4 Hct 39.6 MCV 83.4 MCH 28.2 MCHC 33.8 RDW Std Deviation 39.4 RDW Coeff of Aayush 13.1 Plt Count 245 MPV 10.9 H Immature Gran % (Auto) 0.4 Neut % (Auto) 45.8 Lymph % (Auto) 43.2 Rogers % (Auto) 10.0 Eos % (Auto) 0.2 Baso % (Auto) 0.4 Neut # (Auto) 2.37 Lymph # (Auto) 2.24 Rogers # (Auto) 0.52 Eos # (Auto) 0.01 Baso # (Auto) 0.02 Immature Gran # (Auto) 0.02 Sodium 142 Potassium 4.1 Chloride 110 H Carbon Dioxide 27 Anion Gap 5.0 BUN 11 Creatinine 0.77 Est Cr Clr Drug Dosing 82.6 Est GFR ( Amer) 98.0 Est GFR (Non-Af Amer) 84.5 BUN/Creatinine Ratio 14.4 Glucose 99 Calcium 8.7 Total Bilirubin 1.0 D AST 125 H ALT 141 H Alkaline Phosphatase 59 Total Protein 7.6 Albumin 3.7 Globulin 3.9 Albumin/Globulin Ratio 0.9 COVID-19 Eval [facility] SARS-CoV-2, RNA, NAAT 05/18/20 11:30 WBC RBC Hgb Hct MCV MCH MCHC RDW Std Deviation RDW Coeff of Aayush Plt Count MPV Immature Gran % (Auto) Neut % (Auto) Lymph % (Auto) Rogers % (Auto) Eos % (Auto) Baso % (Auto) Neut # (Auto) Lymph # (Auto) Rogers # (Auto) Eos # (Auto) Baso # (Auto) Immature Gran # (Auto) Sodium Potassium Chloride Carbon Dioxide Anion Gap BUN Creatinine Est Cr Clr Drug Dosing Est GFR ( Amer) Est GFR (Non-Af Amer) BUN/Creatinine Ratio Glucose Calcium Total Bilirubin AST ALT Alkaline Phosphatase Total Protein Albumin Globulin Albumin/Globulin Ratio COVID-19 Eval Order SARS-CoV-2, RNA, NAAT NEGATIVE Medications Administered Current Inpatient Medications Famotidine 20 mg/ Syringe 5 mls @ 2.5 mls/min IV Q12H [facility] Stop: 06/17/20 08:59 Last Admin: 05/18/20 21:46 Dose: 2.5 mls/min Documented by: Metronidazole (Flagyl) 500 mg in 100 mls @ 100 mls/hr IV Q8H [facility] Stop: 05/28/20 07:59 Last Infusion: 05/18/20 17:39 Dose: Infused Documented by: Cefepime HCl 2,000 mg/ Syringe 20 mls @ 5 mls/min IV Q8H [facility] Stop: 05/28/20 16:59 Last Admin: 05/18/20 16:47 Dose: 5 mls/min Documented by: Acetaminophen (Ofirmev) 1,000 mg in 100 mls @ 400 mls/hr IV Q8H [facility] Stop: 05/21/20 20:10 Last Infusion: 05/18/20 22:05 Dose: Infused Documented by: Sodium Chloride (Nss 1000ml) 1,000 mls @ 75 mls/hr IV .[id number] [facility] Stop: 06/17/20 20:10 Last Admin: 05/18/20 22:05 Dose: 75 mls/hr Documented by: Morphine Sulfate (Morphine Sulfate 2 Mg/Ml Carp) 2 mg IV Q3H PRN PRN Reason: Pain Stop: 06/01/20 20:10 Ondansetron HCl (Ondansetron Inj 2 Mg/Ml 2 Ml Vial) 4 mg IV Q6H PRN PRN Reason: NAUSEA/VOMITING Stop: 06/17/20 00:02 Oxycodone HCl (Oxycodone Hcl Ir 5 Mg Tab (Immediate Release)) 5 mg PO Q6H [facility] Stop: 06/01/20 21:59 Last Admin: 05/18/20 22:05 Dose: 5 mg Documented by: PG Care Time/CCT Total # of Minutes Spent Total Time Spent with Patient: Total time spent is greater than 50% in coordination of care (as documented) at patient's floor/unit and/or counseling patient: Coding Level of Care Code 92362 Subseq Hosp Care Lvl 2 Diagnoses Abnormal LFTs R94.5 Symptomatic cholelithiasis K80.20 Hemangioma of liver D18.03
[2020-05-18] MEDS: CEFEPIME 2,000 MG in SYRINGE 0 ML IV SCH (16:47)
[2020-05-18] MEDS ORDERED: EPINEPHrine INJ 1 MG/ML AMP ONE (17:40)
[2020-05-18] MEDS ORDERED: BUPIVACAINE 0.5 % 5 MG/1 ML MPF 30ML VIAL ONE (17:40)
[2020-05-18] MEDS ORDERED: MIDAZOLAM HCL 1 MG/ML 2ML VIAL ONE (17:42)
[2020-05-18] MEDS ORDERED: NEOSTIGMINE METHYLSULFATE 5 MG/5 ML SYR ONE (17:42)
[2020-05-18] MEDS ORDERED: LIDOCAINE HCL 2% 2 ML VIAL/AMP(20MG/ML) INFIL ONE (17:42)
[2020-05-18] MEDS ORDERED: PROPOFOL IV EMULSION 10 MG/ML 20 ML VIAL IV ONE (17:42)
[2020-05-18] MEDS ORDERED: GLYCOPYRROLATE 0.2 MG/ML VIAL ONE ×2 (17:42→18:51)
[2020-05-18] MEDS ORDERED: ONDANSETRON INJ 2 MG/ML 2 ML VIAL ONE (17:42)
[2020-05-18] MEDS ORDERED: ROCURONIUM BROMIDE 10 MG/ML 5 ML VIAL IV ONE (17:42)
[2020-05-18] MEDS ORDERED: fentaNYL citrate 100 MCG/2 ML VIAL ONE ×2 (17:42→18:23)
[2020-05-18] MEDS ORDERED: KETOROLAC 30 MG/ML VIAL ONE (17:42)
[2020-05-18] MEDS ORDERED: PHENYLEPHRINE 100MCG/ML 5ML SYR IV PRN (17:47)
[2020-05-18] MEDS ORDERED: HYDROmorphone INJ 1 MG/ML SYRINGE IV PRN (17:47)
[2020-05-18] MEDS ORDERED: ATROPINE SULFATE 0.1 MG/ML 10ML SYR IV PRN (17:47)
[2020-05-18] MEDS ORDERED: ePHEDrine sulfate 50 MG/ML AMP IV PRN (17:47)
[2020-05-18] MEDS ORDERED: fentaNYL citrate 100 MCG/2 ML VIAL IV PRN (17:47)
[2020-05-18] MEDS ORDERED: LABETALOL HCL IV 5 MG/ML 20ML IV PRN (17:47)
--- NOTE | 2020-05-18 17:53 | Anesthesiology Consultation ---
Date of Service May 18, 2020 Covid 19 negative today. Assessment & Plan (1) Encounter for pre-operative examination: Chart Review Chart Review: Acceptable Risk for Surgery and Patient NOT seen in Pre Admission Testing Consults Requested none History Surgery Operation Date: 05/18/20 11:40 Proposed Procedures p Laparoscopic Cholecystectomy - Satinder Medrano, Height/Weight Height: 5 ft 3 in Weight: 87.7 kg Allergies Allergy/AdvReac Type Severity Reaction Status Date / Time No Known Allergies Allergy Verified 05/17/20 20:27 Medications Home Medications Medication Instructions Recorded Confirmed Last Taken cyanocobalamin (vitamin B-12) 1,000 mcg PO DAILY #30 cap 09/26/19 05/17/20 Unknown 1,000 mcg capsule multivitamin 1 tab PO DAILY #30 tab 09/26/19 05/17/20 Unknown loratadine-pseudoephedrine ER 10 1 tab PO DAILY PRN #90 tab 04/12/20 05/17/20 Unknown mg-240 mg tablet,extended [id number] Active Medications Generic Name Dose Route Start Last Admin Trade Name Michael PRN Reason Stop Dose Admin Potassium Chloride/Sodium Chloride 20 meq in 1,000 mls @ 100 mls/hr 05/18/20 01:30 05/18/20 11:31 Normal Saline W/20 Meq Kcl IV 06/17/20 01:29 100 mls/hr .Q10H [facility] Administration Famotidine 20 mg/ Syringe 5 mls @ 2.5 mls/min 05/18/20 09:00 05/18/20 09:00 IV 06/17/20 08:59 2.5 mls/min Q12H [facility] Administration Metronidazole 500 mg in 100 mls @ 100 mls/hr 05/18/20 08:00 05/18/20 17:39 Flagyl IV 05/28/20 07:59 Infused Q8H [facility] Infusion Cefepime HCl 2,000 mg/ Syringe 20 mls @ 5 mls/min 05/18/20 17:00 05/18/20 16:47 IV 05/28/20 16:59 5 mls/min Q8H ALTA Administration NPO Date Last Intake of Fluids: 05/18/20 Time Last Intake of Fluids: 08:30 Last Intake of Fluids Comment: was told that she could drink until 829 was scheduled for HIDA Scan Date Last Intake of Solids: 05/17/20 Time Last Intake of Solids: 12:00 Past Medical History Medical History Endometriosis Hyperlipidemia Liver lesion Obesity (BMI 30-39.9) Prediabetes RUQ abdominal pain Symptomatic cholelithiasis Vitamin B12 deficiency anemia, unspecified Past Family History Family History Aunt Breast cancer Father Heart disease Hypertension Hypercholesterolemia Stroke Mother Hypercholesterolemia Past Surgical History Surgical History History of carpal tunnel release History of colonoscopy History of hysterectomy RAY, BSO History of oral surgery Social History Smoking Status: Never smoker Do You Dip or Chew Tobacco: No Hx Alcohol Use: No Hx Substance Use: No Physical Exam Vital Signs Last Vital Signs Temp 37 C 05/18/20 17:21 Pulse 88 05/18/20 17:21 Resp 18 05/18/20 17:21 BP 159/81 H 05/18/20 17:21 Pulse Ox 99 05/18/20 17:21 Testing Laboratory Results 05/18/20 05:22 05/18/20 05:22 PT 11.2 Seconds (9.0-12.0) 05/17/20 19:46 INR 1.1 (0.9-1.1) 05/17/20 19:46 Urine Color Yellow 05/17/20 19:50 Urine Appearance Clear (Clear) 05/17/20 19:50 Urine pH 5.5 (4.5-7.5) 05/17/20 19:50 Ur Specific [place] 1.006 (1.000-1.030) 05/17/20 19:50 Urine Protein Negative (Negative) 05/17/20 19:50 Urine Glucose (UA) Negative (Negative) 05/17/20 19:50 Urine Ketones Trace (Negative) H 05/17/20 19:50 Urine Nitrite Negative (Negative) 05/17/20 19:50 Ur Leukocyte Esterase 1+ (Negative) H 05/17/20 19:50 Urine WBC (Auto) 1-5 /hpf (0-5) 05/17/20 19:50 Urine RBC (Auto) 0-4 /hpf (0-4) 05/17/20 19:50 U Hyaline Cast (Auto) 0 /lpf (0-5) 05/17/20 19:50 U Epithel Cells (Auto) 10-20 /lpf (0-5) H 05/17/20 19:50 Urine Bacteria (Auto) Negative (Negative) 05/17/20 19:50 Electrocardiogram Date: 05/18/20 normal sinus rhythm with sinus arrhythmia, T wave abnormality consider anteroloateral ischemia.
--- NOTE | 2020-05-18 19:13 | Operative Report ---
PG Post Operative Report Pre & Post Diagnosis Operation Date: 05/18/20 11:40 Pre-Op Diagnosis: Symptomatic cholelithiasis Post-Op Diagnosis: Symptomatic cholelithiasis;adhesions I identified the patient and participated in the time-out.: Yes Procedure Operation Date: 05/18/20 11:40 Actual Procedures p Laparoscopic Cholecystectomy;enterolysis - Satinder Medrano DO Surgeon Satinder Medrano DO Associate Software Developer deborah [place] Estimated Blood Loss 5 Findings Consistent with Post-Op Diagnosis Specimens gallbladder Description of Procedure After informed consent was obtained the patient was taken to the operating room and placed in the supine position. After successful intubation the abdomen was sterilely prepped and draped in usual fashion. A periumbilical incision was made with an 11 blade scalpel and carried down through the soft tissue using electrocautery. The anterior rectus fascia was opened using electrocautery and 2 #0 Vicryl stay sutures were placed. The peritoneum was elevated with hemostats and incised under direct vision using Metzenbaum scissors. A finger sweep was performed and a 12 mm Johnson trocar was placed. There were some adhesions of the colon and omentum to the anterior abdominal wall. I took these down using small amounts of scissor lysis and blunt finger fractionation. Once these were down I was readily able to see into the upper abdomen. The abdomen was insufflated to 18 mmHg. The laparoscope was inserted and the abdomen was examined in 360. No gross abnormalities were identified other than the previously noted adhesions. A subxiphoid 5 mm port and 2 right upper quadrant 5 mm ports were placed under direct vision. The patient was placed in a reverse Trendelenburg position and slightly airplaned to the left. The gallbladder was grasped and elevated superiorly and laterally. It was markedly distended making manipulation difficult. Therefore I used a gallbladder needle and suctioned out some thick dark black bile. This made manipulation easier. A [place] dissector was used to take down adhesions around the neck of the gallbladder. The cystic duct was identified and skeletonized. It was clipped twice proximally and once distally and transected using a laparoscopic scissor. In similar fashion the cystic artery was identified and skeletonized clipped and divided. There was a small posterior branch that was clipped and divided as well. The gallbladder was removed from the gallbladder fossa with electrocautery. It was placed into an Endo Catch bag. Thorough irrigation was performed. At the end of the procedure there was adequate hemostasis and no evidence of any bile leaks. A final look around the abdomen showed no other abnormalities. The gallbladder and trochars were all removed and the abdomen was desufflated. The fascia of the camera port was closed using 0 Vicryl in a [id number] fashion. All the wounds were irrigated and closed using 4-0 Monocryl. Marcaine was injected around them for postoperative analgesia and skin glue used as a dressing. The patient was awakened, extubated and transferred to recovery in stable condition. My physician's regulatory assistant was present throughout the entire case... helped with prepping the patient. With exposure for trocar placement, as well as retracted the gallbladder throughout the case and also assisted with wound closure and dressing placement. I attest to the content of the Intraoperative Record and any orders documented therein. Any exceptions are noted below.
--- NOTE | 2020-05-18 19:48 | Anesthesiology Progress Note ---
Date of Service May 18, 2020 Anesthesia Post Procedure Vital Signs Vital Signs: Temp Pulse Pulse Pulse Resp BP BP 05/18/20 19:40 63 18 147/75 H 05/18/20 19:30 64 18 158/74 H 05/18/20 19:20 71 18 161/81 H 05/18/20 19:11 36.7 C 80 18 178/93 H 05/18/20 17:21 37 C 88 18 159/81 H 05/18/20 16:37 76 145/80 H 05/18/20 14:55 36.8 C 70 16 176/75 H 05/18/20 07:22 36.6 C 70 16 125/63 05/18/20 01:15 36.8 C 85 16 134/88 05/18/20 00:48 88 18 155/77 H 05/17/20 22:50 85 16 160/74 H 05/17/20 20:58 90 18 167/93 H Pulse Ox 05/18/20 19:40 95 05/18/20 19:30 96 05/18/20 19:20 96 05/18/20 19:11 94 05/18/20 17:21 99 05/18/20 16:37 05/18/20 14:55 97 05/18/20 07:22 93 05/18/20 01:15 96 05/18/20 00:48 100 05/17/20 22:50 97 05/17/20 20:58 96 Pain Intensity Right Abdomen: Pain Intensity: 3 Transfer of Care Handoff Completed per policy Notes Mental Status: alert / awake / arousable Patient Amnestic to Procedure: Yes Nausea / Vomiting: adequately controlled Pain: adequately controlled Airway Patency, RR, SpO2: stable & adequate BP & HR: stable & adequate Hydration State: stable & adequate Anesthetic Complications: no major complications apparent and Pt Satisfied with anesthetic care
[2020-05-18] MEDS: ACETAMINOPHEN 1,000 MG/100 ML VIAL IV SCH (21:45)
[2020-05-18] MEDS: SODIUM CHLORIDE 0.9% 1000ML 1,000 ML IV SCH (22:05)
[2020-05-18] MEDS: OXYCODONE HCL IR 5 MG TAB (IMMEDIATE RELEASE) PO SCH (22:05)
[2020-05-19] MEDS: CEFEPIME 2,000 MG in SYRINGE 0 ML IV SCH ×2 (02:12→08:51)
[2020-05-19] MEDS: OXYCODONE HCL IR 5 MG TAB (IMMEDIATE RELEASE) PO SCH ×2 (04:21→09:26)
[2020-05-19] MEDS: ACETAMINOPHEN 1,000 MG/100 ML VIAL IV SCH (05:55)
[2020-05-19 06:12] LABS: Basophils # (auto) 0.01 K/uL (0-0.2); Basophils % (auto) 0.1 %; Hematocrit (blood only) 38.6 % (37-47); Hemoglobin 12.9 g/dL (12.0-16.0); Immature Granulocytes # (auto) 0.04 K/uL (0.00-0.02); Immature Granulocytes % (auto) 0.5 %; Lymphocytes # (auto) 1.19 K/uL (1.2-3.4); Lymphocytes % (auto) 14.1 %; Mean Corpuscular Hemoglobin 28.2 pg (25-34); Mean Corpuscular Hgb Conc 33.4 g/dL (32-36); Mean Corpuscular Volume 84.3 fL (80-100); Mean Platelet Volume 10.9 fL (7.4-10.4); Monocytes # (auto) 0.43 K/uL (0.11-0.59); Monocytes % (auto) 5.1 %; Neutrophils # (auto) 6.75 K/uL (1.4-6.5); Neutrophils % (auto) 80.2 %; Platelet Count 259 K/uL (130-400); RDW Coefficient of Variation 13.2 % (11.5-14.5); RDW Standard Deviation 39.8 fL (36.4-46.3); Red Blood Count 4.58 M/uL (4.2-5.4); White Blood Count 8.42 K/uL (4.8-10.8)
[2020-05-19 06:45] LABS: Albumin Level 3.4 gm/dl (3.4-5.0); BUN Creatinine Ratio 10.8 (10-20); Calcium 8.5 mg/dl (8.5-10.1); Est GFR (African American) 102.8; Est GFR (Non-African American) 88.7; Magnesium 1.9 mg/dl (1.8-2.4); Potassium 4.1 mmol/L (3.5-5.1)
[2020-05-19 06:48] LABS: Albumin Globulin Ratio 0.9 (0.9-2); Bilirubin,Total 1.2 mg/dl (0.2-1); Globulin 3.9 gm/dl (2.5-4.0); Total Protein 7.3 gm/dl (6.4-8.2)
[2020-05-19] MEDS: metroNIDAZOLE 500 MG/100 ML BAG IV SCH (08:51)
[2020-05-19] MEDS: FAMOTIDINE 20 MG in SYRINGE 3 ML IV SCH (08:51)
--- NOTE | 2020-05-19 08:55 | Surgery Progress Note ---
Date of Service May 19, 2020 Assessment & Plan (1) Symptomatic cholelithiasis: Postoperative day 1 from a laparoscopic cholecystectomy. Doing as expected. We will advance diet. Okay from our standpoint for discharge later today. Follow-up in 1 week. Instructions given. Admission and Anticipated Discharge Date Admission Date: May 17, 2020 Subjective Patient seen. Feeling okay. Having expected postoperative pain but managed. No nausea or vomiting. Tolerating liquids. Physical Exam Physical Exam: Alert no acute distress. She is out of bed sitting in a chair. Abdomen is soft with expected incisional tenderness. Results & Data ([facility]) Vital Signs (Past 12 Hours) Vital Signs Temp Pulse Pulse Resp BP BP Pulse Ox 05/19/20 07:23 37.2 C 91 H 16 119/70 92 05/19/20 04:05 36.8 C 98 H 16 127/71 94 05/18/20 23:08 37.1 C 85 18 142/73 H 97 05/18/20 22:10 37.0 C 78 16 148/77 H 95 05/18/20 21:10 36.7 C 82 16 135/80 96 PG Care Time/CCT Total # of Minutes Spent Total Time Spent with Patient: Total time spent is greater than 50% in coordination of care (as documented) at patient's floor/unit and/or counseling patient: Coding Level of Care Code None Diagnoses Symptomatic cholelithiasis K80.20
--- NOTE | 2020-05-19 10:49 | Discharge Summary ---
Date of Service May 19, 2020 Admission HPI Per Admitting Provider The patient is a 59-year-old female with a past medical history including vitamin B12 deficiency, prediabetes, obesity, hyperlipidemia and allergic rhinitis. She presents as noted above. She did have a outpatient ultrasound performed by her PCP, which showed stones and sludge in her gallbladder. She has a pending appointment with Dr. Medrano from general surgery. She developed severe right upper quadrant pain today about 3 hours after eating grilled chicken for lunch, and was referred to the ED by her PCP. She has not had any recent travels or sick exposures. Principal Diagnosis Cholelithiasis, elevated LFTs Discharge Exam Constitutional WD/WN, vitals as above Respiratory normal respiratory effort, lungs clear to auscultation Cardiovascular RRR, no murmur, no edema Gastrointestinal (Abdomen) normal bowel sounds, soft, nontender, no hepatosplenomegaly Musculoskeletal no cyanosis or clubbing, extremities motor strength 5/5 Skin no rashes, warm and dry Neurologic moves all extremities and awake Psychiatric A+Ox3, euthymic affect Discharge Data Allergies Allergy/AdvReac Type Severity Reaction Status Date / Time No Known Allergies Allergy Verified 05/17/20 20:27 Consultations 05/17/20 23:17 ED Decision to Admit Stat 05/18/20 01:43 Consult Case Management - Discharge Planning Routine Procedures Performed Operation Date: 05/18/20 11:40 Actual Procedures p Laparoscopic Cholecystectomy - Satinder Medrano, Ordered Studies 05/17/20 20:55 gallbladder Urgent 05/18/20 00:01 MR MRCP Urgent Hospital Course (1) Abnormal LFTs: Abnormal LFTs/cholelithiasis with gallbladder sludge- Neither ultrasound or MRI confirms cholecystitis. symptoms consistent with cholecystitis s/p lap ling and lysis of adhesions on 05/18 in the evening with Dr. Medrano no complications LFTs continue to be elevated with AST trending down, ALT a bit higher today. Patient does have elevated a fatty liver on her imaging. Would have her follow up on this with her pcp and repeat lab work next week. GivenCefepime - will send home with cipro/flagyl diet and pain control per surgery discharge timing per surgery, check with them tomorrow, reasonable to think that she will be appropriate for discharge (2) Symptomatic cholelithiasis: see above s/p lap ling (3) Hemangioma of liver: Initial liver lesion noted on gallbladder ultrasound, is confirmed as a probable hemangioma on MRI (4) Hepatic steatosis: As seen on gallbladder US. Follow with pcp Total Time Total Time Spent Total Time Spent (In Minutes): greater than 30 minutes Discharge Plan Discharge Items Patient Disposition: Home - Self-Care Reason For Visit: ABNORMAL LFT'S, N/V Discharge Diagnosis: laparoscopic cholecystectomy Activity: Per Instructions section Lifting: No more than 10 pounds Bathing Comment: may shower; no soaking in tubs/pools Exercise/Sports: Wait until after follow-up appointment Driving/Machine Use: do not resume driving while taking narcotics for pain Non-emergency contact: Surgeon Call non-emergency contact if: you have any medication questions, your symptoms worsen, your pain is not controlled, your pain is worsening, your pain is unusual for you, your pain is concerning for you, you have a fever, your temperature is above 101.5, your wound has increased redness, your wound has increased drainage and your wound pain has increased Follow-up/Referrals: Kathie Cruz MD [Primary Care Provider] - (follow up in one week ) Satinder Medrano DO [Surgeon] - (Please call to schedule follow up in clinic within 1-2 week) Diet: Regular Addtl Attending Provider Instructions: You had a laparascopic cholecystectomy and lysis of adhesions on 05/[address] Medrano You will complete 5 more days of antibiotics While you were here you had abnormal liver function tests. Please have your [facility] provider repeat your blood work at your next appointment. You should follow up with your pcp in about a week. An incidental finding of fatty liver was seen on your imaging. I have attached some information on fatty liver. Please follow with your pcp. A hemangioma was again seen on your liver (a benign liver lesion). It was unchanged from 2018 Pending Studies at Discharge: Yes Studies:: surgical pathology Stand-Alone Forms: My [facility], Opioid Pain Management, Smoking Cessation Medications and DC Order Prescriptions: New ciprofloxacin HCl 500 mg tablet 500 mg PO BID Qty: 10 RF: 0 metronidazole 500 mg tablet 500 mg PO TID Qty: 15 RF: 0 hydrocodone-acetaminophen [[place]] 5-325 mg tablet 1 - 2 tab PO .q4-6h PRN (Reason: pain, for initial therapy, max 6 tabs per day) Qty: 15 RF: 0 Continued multivitamin Tablet 1 tab PO DAILY Qty: 30 RF: 0 cyanocobalamin (vitamin B-12) 1,000 mcg capsule 1,000 mcg PO DAILY Qty: 30 RF: 0 loratadine-pseudoephedrine [Claritin-D 24 Hour] 10-240 mg tablet extended release 24 hr 1 tab PO DAILY PRN (Reason: allergy symptoms) Qty: 90 RF: 0 Discharge Orders: Discharge Order (Routine); Ordered 05/19/20 Ordered By: Ronda Carbajal/Other Patient Handouts: Nonalcoholic Fatty Liver Disease NAFLD Admission Data Admit Date/Time: 05/17/20 23:58 Attending Provider: Carlo Lugo Admit Provider: Willi Donovan Primary Care Provider: Kathie Cruz Other Providers: Willi Donovan Other Interventions: Discharge Summary Assessment (RN) Last Done: 05/19/20 11:19 Supervising Physician Co-Signing Physician Notes Patient seen and examined within 24 hours of discharge. I agree with the discharge summary by Ronda FIGUEROA. I have reviewed the chart including labs, imaging and plans for discharge. s/p cholecystectomy for symptomatic cholelithiasis tolerated surgery well, no complications tolerating diet, awaiting return of bowel function but active bowel sounds cleared for discharge by Dr. Medrano, follow up with him in the office Coding Level of Care Code D/C Day Management >30 mins Diagnoses Abnormal LFTs R94.5 Symptomatic cholelithiasis K80.20 Hemangioma of liver D18.03 Hepatic steatosis K76.0
[2020-05-19] MEDS: SODIUM CHLORIDE 0.9% 1000ML 1,000 ML IV SCH (11:44)
--- NOTE | 2020-05-19 16:59 | Electrocardiogram Report ---
Test Reason : Blood Pressure : / mmHG Vent. Rate : 074 BPM Atrial Rate : 074 BPM P-R Int : 160 ms QRS Dur : 088 ms QT Int : 400 ms P-R-T Axes : 030 021 027 degrees QTc Int : 444 ms Normal sinus rhythm with sinus arrhythmia T wave abnormality, consider anterolateral ischemia Abnormal ECG No previous ECGs available Confirmed by Eligio Izaguirre ([id number]) on 05/19/2020 4:59:02 PM Referred By: REFERRED SELF Confirmed By:Robin Izaguirre
== END 2020-05-19 13:00 | disposition home or self-care (01) ==
LOC: ED 19:16 → SUATTDRO 23:58 → 3W 23:58 → INTOOBSV 23:58 → 3W 05-18 00:48